=== PATIENT | male | born 1960 | race Caucasian/White ===

== ENCOUNTER → 2016-11-23 | Outpatient (CLI) | payer BC, OTHER ==
[~2016-11-23] MED LIST: CALCIUM 600 +1 EAC1 PO; CEFTIN 250 MG250 MG PO; CRESTOR10 MG; FLEET ENEMA118 ML RC; FOLIC ACID 1 MG1 MG PO; HYDROCODON-ACE1 EAC7 PO; IBUPROFEN 200200 M1 PO; LO-DOSE ASPIRIN81 M1 PO; MULTI VITAMIN1 EACH PO; NORCO 5-325 TA1 EACH PO; OXYCODONE HCL5 M1 PO; PREDNISONE 20 M20 M1 PO; PROPECIA PO; ROGAINE TP; SKELAXIN 800 M800 M1 PO; TIROSINT100 MCG PO; TYLENOL325 MG PO
== END ==
LOC: CAT 08:45 → ULTRA 08:45
DX: I82.511 Chronic embolism and thrombosis of right femoral vein (principal); I82.531 Chronic embolism and thrombosis of right popliteal vein; J98.11 Atelectasis; J90 Pleural effusion, not elsewhere classified

== ENCOUNTER → 2017-06-07 | Outpatient (CLI) | payer BC, OTHER | LOC: RAD 13:37 | DX: J20.8 Acute bronchitis due to other specified organisms (principal); J98.11 Atelectasis; R05 Cough ==